=== PATIENT | male | born 1955 | race Asian ===

== ENCOUNTER 2024-11-17 10:36 | Emergency (ER) | payer MEDICARE, OTHER ==
[~2024-11-17] VITALS: Ht 167.6 cm; Wt 66.4 kg
[~2024-11-17 10:36] MED LIST: ASPI81TA39 PO; METO-325 PO; SIMV-260 PO
[2024-11-17] MEDS ORDERED: FENO54TA7 PO (10:41)
[2024-11-17 10:43] VITALS: TEMP 97.6
[2024-11-17 12:39] LABS: CALCIUM, TOTAL 8.8 mg/dL (8.8-10.5); CREATININE 1.25 mg/dL (0.60-1.30); POTASSIUM 4.1 mmol/L (3.5-5.1)
[2024-11-17 12:43] LABS: BASOPHILS % (AUTO) 0.1 % (0.0-2.0); EOSINOPHILS % (AUTO) 1.2 % (1.0-6.0); HEMATOCRIT 42.4 % (41-53); HEMOGLOBIN 13.7 g/dL (13.5-17.5); LYMPHOCYTES # (AUTO) 0.9 K/uL (1.0-4.8); MEAN CORPUSCULAR HGB CONC 32.3 G/dL (31.0-37.0); MEAN CORPUSCULAR VOLUME 84 fL (80-100); MONOCYTES # (AUTO) 0.6 K/uL (0.1-1.0); MONOCYTES % (AUTO) 6.1 % (2.0-9.0); NEUTROPHILS # (AUTO) 8.7 K/uL (1.8-7.7); NEUTROPHILS % (AUTO) 83.6 % (40.0-70.0); PLATELET COUNT (AUTO) 189 K/uL (150-450); RED BLOOD CELL COUNT(AUTO) 5.07 MIL/uL (4.50-5.90); RED CELL DISTRIBUTION WIDTH 13.9 % (11.5-14.5); WHITE BLOOD COUNT (AUTO) 10.4 K/uL (4.5-11.0)
[2024-11-17 12:47] LABS: TROPONIN I-HIGH SENSITIVITY 5 ng/L (<76)
[2024-11-17] MEDS ORDERED: ASPI-1444 PO (12:54)
[2024-11-17] MEDS ORDERED: SILD100T71 PO (12:55)
[2024-11-17] MEDS ORDERED: TRIA15CR49 TP (12:55)
[2024-11-17] MEDS ORDERED: FENO145T26 PO (12:55)
[2024-11-17] MEDS: SODIUM CHLORIDE 0.9% 1,000 ML IV ONE (13:18)
[2024-11-17] MEDS: ONDANSETRON HCL 4 MG/2 ML VIAL IVP ONE (13:19)
[2024-11-17 13:46] LABS: APPEARANCE,URINE CLEAR (CLEAR); BILIRUBIN,URINE NEGATIVE (NEGATIVE); COLOR,URINE LIGHT YELLOW (YELLOW); GLUCOSE, URINE (UA) NEGATIVE (NEGATIVE); KETONES,URINE NEGATIVE (NEGATIVE); LEUKOCYTE ESTERASE ,URINE NEGATIVE (NEGATIVE); NITRATE,URINE NEGATIVE (NEGATIVE); OCCULT BLOOD,URINE NEGATIVE (NEGATIVE); PH,URINE 6.5 (5.0-8.0); PROTEIN,URINE NEGATIVE (NEGATIVE); SPECIFIC GRAVITIY, URINE 1.015 (1.003-1.030); UROBILINOGEN,URINE <=1.0 mg/dL (<=1.0)
[2024-11-17 13:54] VITALS: BP 116/71; PULSE 58; RESP 16; O2SAT 99
[2024-11-17 14:11] LABS: COVID AG,FIA SOURCE NASAL SWAB
[2024-11-17] MEDS ORDERED: ONDA-243 PO (14:19)
[2024-11-17 15:24] LABS: SARS-COV2 (COVID) ANTIGEN,FIA Negative (Negative)
[2024-11-17 15:25] LABS: INFLUENZA TYPE A NEGATIVE FOR TYPE A (NEGATIVE); INFLUENZA TYPE B NEGATIVE FOR TYPE B (NEGATIVE)
== END 2024-11-17 15:51 | disposition home or self-care (01) ==
LOC: EMS 10:36
DX: R11.2 Nausea with vomiting, unspecified (principal); I10 Essential (primary) hypertension; E78.00 Pure hypercholesterolemia, unspecified; Z20.822 Contact with and (suspected) exposure to COVID-19
CPT/HCPCS: 99284; 96374; 96361; 87426; 80048; 81003; 83690; 84484; 85025; 87804; 36415; 93005; J2405; J7030